=== PATIENT | male | born 1950 | race Caucasian/White ===

== ENCOUNTER 2021-04-26 13:08 | Emergency (ER) | payer OTHER ==
[~2021-04-26] VITALS: Ht 180.3 cm; Wt 106.6 kg
== END 2021-04-26 15:11 | disposition home or self-care (01) ==
LOC: ER 13:08
DX: S01.81XA Laceration without foreign body of other part of head, initial encounter (principal); D68.32 Hemorrhagic disorder due to extrinsic circulating anticoagulants; T45.515A Adverse effect of anticoagulants, initial encounter; I10 Essential (primary) hypertension; Z88.1 Allergy status to other antibiotic agents; Z79.01 Long term (current) use of anticoagulants; W22.8XXA Striking against or struck by other objects, initial encounter
CPT/HCPCS: 99283-25; A9270

== ENCOUNTER 2021-06-04 21:54 | Emergency (ER) | payer OTHER ==
[~2021-06-04] VITALS: Ht 180.3 cm; Wt 95.2 kg
== END 2021-06-04 23:45 | disposition home or self-care (01) ==
LOC: ER 21:54
DX: I83.899 Varicose veins of unspecified lower extremity with other complications (principal); I10 Essential (primary) hypertension; Z88.8 Allergy status to other drugs, medicaments and biological substances
CPT/HCPCS: 99282

== ENCOUNTER 2023-03-10 09:54 | Inpatient (IN) | payer OTHER ==
[~2023-03-10] VITALS: Ht 180.3 cm; Wt 102.1 kg
[2023-03-10] MEDS ORDERED: HYDCHL25 PO (10:12)
[2023-03-10] MEDS ORDERED: LISI5 PO (10:13)
[2023-03-10] MEDS ORDERED: ELIQUIS5 M2 PO (10:13)
[2023-03-10] MEDS ORDERED: ALEN70 PO (10:13)
[2023-03-10] MEDS ORDERED: ATEN25 PO ×2 (10:13)
[2023-03-10 10:14] LABS: BASOPHILS ABSOLUTE AUTO 0.05 K/mm3 (0.00-0.23); BASOPHILS PERCENT AUTO 0 % (0-2); EOSINOPHILS ABSOLUTE AUTO 0.07 K/mm3 (0.00-0.68); EOSINOPHILS PERCENT AUTO 0 % (0-6); Hematocrit 38.1 % (37.0-53.0); Hemoglobin 13.7 g/dL (13.5-17.5); IMMATURE GRAN ABSOLUTE AUTO 0.15 K/mm3 (0.00-0.10); IMMATURE GRAN PERCENT AUTO 1 % (0-1); LYMPHOCYTES ABSOLUTE AUTO 0.66 K/mm3 (0.84-5.20); LYMPHOCYTES PERCENT AUTO 3 % (21-46); MONOCYTES ABSOLUTE AUTO 2.57 K/mm3 (0.16-1.47); MONOCYTES PERCENT AUTO 11 % (4-13); Mean Corpuscular HGB 35.9 pg (26.0-34.0); Mean Corpuscular Volume 100 fL (80-100); Mean Platelet Volume 10.4 fL (9.1-12.4); NEUTROPHILS PERCENT AUTO 85 % (41-73); Platelet Count 143 K/mm3 (150-400); RDW Coefficient Variation 12.2 % (11.7-14.2); RDW Standard Deviation 45.1 fL (35.1-46.3); Red Blood Cell Count 3.82 M/mm3 (4.30-5.90)
[2023-03-10] MEDS ORDERED: HYDR1TAB94 PO (10:14)
[2023-03-10] MEDS ORDERED: LIDO700A20 TOP (10:14)
[2023-03-10 10:33] LABS: Albumin/Globulin Ratio 0.6 (0.8-1.8); Calcium, Blood 8.7 mg/dL (8.5-10.1); Creatinine, Blood 1.2 mg/dL (0.60-1.20); Potassium, Blood 3.9 mmol/L (3.5-5.5)
[2023-03-10 12:54] LABS: Influenza A, PCR NEGATIVE (NEGATIVE); Influenza B, PCR NEGATIVE (NEGATIVE); Resp Syncytial Virus, PCR NEGATIVE (NEGATIVE); SARS-Cov-2 (COVID-19) PCR, MMC NEGATIVE (NEGATIVE)
[2023-03-10 13:37] VITALS: BP 127/88
[2023-03-10 15:48] VITALS: BP 102/68
[2023-03-10] MEDS ORDERED: CALCIUM PO (15:52)
[2023-03-10] MEDS ORDERED: VITAMIN D 3 PO (15:52)
[2023-03-10] MEDS ORDERED: CENTRUM SILVER1 EAC2 PO (15:52)
--- NOTE | 2023-03-10 16:03 | NUR ---
DR. LOPEZ BY FOR PROVIDOR VISIT, UPDATED ON CURRENT VITALS. ORDERS TO GIVE HOME ATENOLOL NOW. ORDERS IN PLACE.
--- NOTE | 2023-03-10 18:24 | NUR ---
PT A&OX4, COOPERATIVE WITH CARE. PT WEARS GLASSES, CHOCHLEAR IMPLANT L EAR, HEARING AID R EAR. PT WEARS DENTURES, BUT THEY ARE AT HOME. PT ON 2L SATING ABOVE 94%, PT STATED PAIN L SIDE OF CHEST/RIBS WHEN TAKING DEEP BREATHS. HR AFIB 100'S-110'S. ABDOMEN DISTENDED, PT STATED THAT IS NORMAL FOR HIM. 2+ SWELLING BLE, PT STATED NORMAL FOR HIM. PT'S VISITED WITH HIM FOR AWHILE THIS EVENING. PT CURRENTLY RESTING IN CHAIR, CALL LIGHT WITHIN REACH.
[2023-03-10 18:33] VITALS: BP 103/83
[2023-03-10 20:01] VITALS: BP 96/74
[2023-03-10 23:56] VITALS: BP 95/67
[2023-03-10 23:58] LABS: Source, Urine Straight Cath
[2023-03-11 00:55] LABS: Blood, Urine 3+ (Neg); Glucose Qualitative, Urine Neg (Neg); Ketones, Urine 1+ (Neg); Leukocyte Esterase, Urine 1+ (Neg); Nitrite, Urine Neg (Neg); Protein, Urine 3+ (Neg); Specific Gravity, Urine 1.025 (1.003-1.022); Urobilinogen, Urine 1+ (Normal)
[2023-03-11 01:02] LABS: Bilirubin, Urine 1+ (Neg)
[2023-03-11 01:03] LABS: Appearance, Urine Hazy (Clear); Color, Urine Yellow (P-Yellow)
[2023-03-11 02:20] LABS: Albumin, Blood 2.7 g/dL (3.4-5.0); Albumin/Globulin Ratio 0.6 (0.8-1.8); Bilirubin, Total 1.3 mg/dL (0.1-1.0); Bun/Creatinine Ratio 24.8 (12.0-20.0); Calcium, Blood 8.6 mg/dL (8.5-10.1); Creatinine, Blood 1.21 mg/dL (0.60-1.20); Globulin, Blood 4.8 g/dL (2.2-4.0); Potassium, Blood 3.5 mmol/L (3.5-5.5); Total Protein, Blood 7.5 g/dL (6.4-8.2)
[2023-03-11 02:37] LABS: Hematocrit 36.9 % (37.0-53.0); Hemoglobin 12.9 g/dL (13.5-17.5); Mean Corpuscular HGB 35.4 pg (26.0-34.0); Mean Corpuscular Volume 101 fL (80-100); Mean Platelet Volume 10.7 fL (9.1-12.4); Platelet Count 129 K/mm3 (150-400); RDW Coefficient Variation 12.2 % (11.7-14.2); RDW Standard Deviation 45.9 fL (35.1-46.3); Red Blood Cell Count 3.64 M/mm3 (4.30-5.90); White Blood Cell Count 14.14 K/mm3 (4.00-11.30)
[2023-03-11 02:41] LABS: Source, Urine Straight Cath
[2023-03-11 04:59] VITALS: BP 102/68
[2023-03-11 05:53] LABS: Amorphous Mod (0-Heavy); Bacteria Few /hpf; Squamous Epithelial Cells Rare /hpf (Few)
--- NOTE | 2023-03-11 06:46 | NUR ---
SHIFT SUMMARY A/OX4, 1P ASSIST FOR TRANSFERS D/T WEAKNESS. TELE AFIB 70-90S, DENIES CARDIAC RELATED CP. SPO2 >92% ON RA. REPORTS L. SHOULDER/RIB PAIN THAT HAS BEEN ONGOING X 5 DAYS, MEDICATED PER EMAR. PT UP TO BATHROOM TO URINATE, POST VOID BLADDER SCAN OF <200. VSS, NO ACUTE CHANGES AT THIS TIME. BED IN LOWEST POSITION WITH CALL LIGHT IN REACH. WILL CONTINUE TO MONITOR AND REPORT TO ONCOMING RN.
[2023-03-11 09:01] VITALS: BP 121/74
--- NOTE | 2023-03-11 10:44 | NUR ---
Plans for comfort care, held am medications.
[2023-03-11 12:10] VITALS: BP 126/86
[2023-03-11 16:24] VITALS: BP 119/68
--- NOTE | 2023-03-11 17:45 | NUR ---
Shift Summary Patient alert, oriented x4; calm and cooperative with care. Patient is resting in bed, up sba in room. Reporting pain to left side, medicated per emar and heating pad provided. Patient denies sob nausea, dizziness and numb/tingling. Patient had cochlear implant. Tele afib 80-120's, bp stable. Spo2 >90% on ra, titrated down from 2l o2 via nc this am. Abd distender, patient reporting as normal for him. Patinet reporting constipation this am, medicated per emar, pt reports bm this afternoon. Pt reporting productive cough this afternoon, attempted to send sputum for culture but was not adequate. Other vss. Will continue to monitor.
--- NOTE | 2023-03-11 18:58 | NUR ---
Per donor line, pt is able to donate eyes and tissue, will here approx 1999. Notified [facility] to be on standby.
[2023-03-11 19:32] VITALS: BP 109/60
[2023-03-11 23:00] VITALS: BP 115/86
[2023-03-12 03:51] LABS: Hematocrit 35.1 % (37.0-53.0); Hemoglobin 12.5 g/dL (13.5-17.5); Mean Corpuscular HGB 35.7 pg (26.0-34.0); Mean Corpuscular HGB Conc 35.6 g/dL (31.5-36.5); Mean Corpuscular Volume 100 fL (80-100); Mean Platelet Volume 10.2 fL (9.1-12.4); Platelet Count 144 K/mm3 (150-400); RDW Coefficient Variation 12.1 % (11.7-14.2); RDW Standard Deviation 44.2 fL (35.1-46.3); White Blood Cell Count 12.11 K/mm3 (4.00-11.30)
[2023-03-12 04:09] LABS: Bun/Creatinine Ratio 35.9 (12.0-20.0); Calcium, Blood 8.9 mg/dL (8.5-10.1); Creatinine, Blood 0.98 mg/dL (0.60-1.20); Phosphorus, Blood 4.1 mg/dL (2.5-4.9); Potassium, Blood 3.8 mmol/L (3.5-5.5)
--- NOTE | 2023-03-12 04:23 | NUR ---
SHIFT SUMMARY: PT ALERT AND ORIENTED X4, ABLE TO FOLLOW COMMANDS AND MAKE NEEDS KNOWN. COOPERATIVE WITH CARE. STRENGTH EQUAL BILATERALLY. BP STABLE, HR REMAINS AFIB 70'S AT REST, >110 WITH ACTIVITY. SATS >95% ON 2L NC. RESPIRATIONS EVEN AND UNLABORED. PT IND TO AND FROM BATHROOM. APPROX 800ML OF URINIARY OUTPUT, NO BM. POSSIBLE DISCHARGE TODAY. BED IN LOW, CALL LIGHT IN REACH, WILL REPORT TO ONCOMING RN.
--- NOTE | 2023-03-12 05:23 | NUR ---
UPDATE: PT REFUSING 0400 VITALS.
[2023-03-12 07:23] VITALS: BP 137/109
--- NOTE | 2023-03-12 07:39 | NUR ---
AM NOTE PT UP IN CHAIR, HE IS ALERT AND ORIENTED X 4, HE REPORTED 5/10 PAIN IN BOTH RIGHT AND LEFT SIDES DUE TO FALL AT HOME ON FEBRUARY 20. PT OFFERED TYLENOL FIRST BUT DECLINED. VSS. CALL LIGHT IN REACH.
[2023-03-12 10:48] VITALS: BP 111/77
[2023-03-12] MEDS ORDERED: ATEN25 (11:55)
[2023-03-12] MEDS ORDERED: AZIT500 PO (11:59)
[2023-03-12] MEDS ORDERED: Tessalon200 MG PO (12:00)
[2023-03-12] MEDS ORDERED: GUAI600T33 PO (12:00)
[2023-03-12] MEDS ORDERED: MIRALAX17 GM PO (12:01)
[2023-03-12] MEDS ORDERED: VISBIOME 112.51 EACH PO (12:03)
[2023-03-12] MEDS ORDERED: FURO20 PO (12:04)
[2023-03-12] MEDS ORDERED: CEFU500T30 PO (12:04)
[2023-03-12] MEDS ORDERED: ATEN25 PO (12:16)
--- NOTE | 2023-03-12 13:36 | NUR ---
DISCHARGE NOTE PT WAS ALERT AND ORIENTED X 4, VSS. THIS NURSE REMOVED PERIPHERAL IV IN L HAND. DISCHARGE INSTRUCTIONS GIVEN TO PT AND PT INCLUDING BUT NOT LIMITED TO MEDICATION INSTRUCTIONS, DIET RESTRICTIONS, AND FOLLOW UP APPOINTMENTS. EDUCATION ALSO PROVIDED REGARDING NEW MEDICATIONS. PT LEFT PCU AT APPROX. 1255 VIA WHEELCHAIR ESCORTED BY MIGUEL ANGEL HOLDER. PT LEFT W/ ALL OF PERSONAL BELONGINGS.
== END 2023-03-12 12:53 | disposition home or self-care (01) | DRG 280 ==
LOC: ER 09:54 → PCU 12:26
PROVIDERS: Emergency Medicine; ADMIT Internal Medicine
DX: I48.20 Chronic atrial fibrillation, unspecified (principal); I21.A1 Myocardial infarction type 2; A41.9 Sepsis, unspecified organism; I50.21 Acute systolic (congestive) heart failure; J18.9 Pneumonia, unspecified organism; J96.91 Respiratory failure, unspecified with hypoxia; E87.1 Hypo-osmolality and hyponatremia; I42.0 Dilated cardiomyopathy; E86.1 Hypovolemia; D69.6 Thrombocytopenia, unspecified; N40.0 Benign prostatic hyperplasia without lower urinary tract symptoms; I73.9 Peripheral vascular disease, unspecified; G60.9 Hereditary and idiopathic neuropathy, unspecified; K76.0 Fatty (change of) liver, not elsewhere classified; D47.2 Monoclonal gammopathy; I95.9 Hypotension, unspecified; I11.0 Hypertensive heart disease with heart failure; M81.0 Age-related osteoporosis without current pathological fracture; Z20.822 Contact with and (suspected) exposure to COVID-19; Z79.01 Long term (current) use of anticoagulants; Z87.19 Personal history of other diseases of the digestive system; Z88.1 Allergy status to other antibiotic agents; Z85.828 Personal history of other malignant neoplasm of skin; Z98.890 Other specified postprocedural states; Z79.899 Other long term (current) drug therapy; Z79.811 Long term (current) use of aromatase inhibitors; Z87.891 Personal history of nicotine dependence
CPT/HCPCS: 0241U; 36415; 71045; 71250; 80048; 80053; 81015; 83605; 83735; 83880; 84100; 84145; 84484; 85025; 85027; 87040; 87086; 93005; 93010; 94760; 94762; 96365; 96375; 96376; 99285-25; A9270; C8929; J0456; J0696; J1940; J2405; J3010; J7050; Q9957

== ENCOUNTER 2024-08-28 07:38 | Day surgery (SDC) | payer OTHER ==
[2024-08-28] VITALS (13 sets, daily range): BP systolic 80–153; BP diastolic 59–99
[~2024-08-28] VITALS: Ht 182.9 cm; Wt 104.3 kg
[~2024-08-28 07:38] MED LIST: ACET500; ALEN70 PO; ATEN25; ATEN25 PO; AZIT500 PO; CALCIUM PO; CEFU500T30 PO; CENTRUM SILVER1 EAC2 PO; ELIQUIS5 M2 PO; FURO20 PO; GUAI600T33 PO; HYDCHL25 PO; HYDR1TAB94 PO; LIDO700A20 TOP; LISI5 PO; MIRALAX17 GM PO; Tessalon200 MG PO; VISBIOME 112.51 EACH PO; VITAMIN D 3 PO
[2024-08-28] MEDS ORDERED: Heparin Sodium 1000 Units/ML 10ML MDV ONE ×2 (10:18→11:54)
[2024-08-28] MEDS ORDERED: Nitroglycerin 2 MG/20 ML BTL ONE (10:18)
[2024-08-28] MEDS ORDERED: NS 1,000 ML IV ONE ×2 (10:18→10:40)
[2024-08-28] MEDS ORDERED: NS 250 ML IV ONE ×2 (10:18)
[2024-08-28] MEDS ORDERED: Midazolam HCl 1MG / ML 2ML Vial ONE ×3 (10:40→11:21)
[2024-08-28] MEDS ORDERED: FentaNYL Citrate 50 MCG/ML 2 ML Injection ONE ×2 (10:40→11:21)
[2024-08-28] MEDS ORDERED: Protamine Sulfate 50 MG Amp ONE (12:12)
--- NOTE | 2024-08-28 13:25 | NUR ---
PATIENT TO RECOVERY ROOM S/P PERIPHERAL ANGIOGRAM AT 1249 WITH LEFT BRACHIAL ACCESS. PT AWAKE AND ALERT SITTING UP IN A CHAIR. PATIENT DENIES COMPLAINTS. PT WITH SOME HYPOTENSION, MAPS >65, PT ASYMPTOMATIC. LEFT BRACHIAL SITE WNL. DRSG C/D/I. SITE SOFT WITHOUT HEMATOMA OR BLEEDING. DR CRESPO TO SEE PT AFTER PROCEDURE TO GIVE UPDATE.
--- NOTE | 2024-08-28 15:06 | NUR ---
STANDING BP TAKEN PRIOR TO DC, 103 SYSTOLIC ON SHANE. PT STATES HIS BP RUNS 20 POINTS LOWER ON RIGHT ARM. LEFT WRIST SYSTOLIC IN 150'S. PT UP TO BATHROOM W/O COMPLAINTS, DENIES PAIN OR DIZZINESS. VOIDED AROUND 500CC URINE. TOLERATED JUICE AND CRACKERS. VERBAL AND WRITTEN DISCHARGE INFO GIVEN TO PT AND PT'S WITH CLEAR UNDERSTANDING. PT DC'D HOME IN STABLE CONDITION AT 1500. ESCORTED OUT VIA WHEELCHAIR, PT'S DRIVING PT HOME.
== END 2024-08-28 15:34 | disposition home or self-care (01) ==
LOC: MHTC 07:38
DX: I73.9 Peripheral vascular disease, unspecified (principal); I10 Essential (primary) hypertension; E78.5 Hyperlipidemia, unspecified; I48.91 Unspecified atrial fibrillation; J43.9 Emphysema, unspecified; Z87.891 Personal history of nicotine dependence; Z88.1 Allergy status to other antibiotic agents; Z79.01 Long term (current) use of anticoagulants; Z79.899 Other long term (current) drug therapy
CPT/HCPCS: 36200; 75625; 75716; 76937; 99152; 99153; C1769; C1887; C1894; J1644; J2250; J2720; J3010; J7030; J7050; Q9967

== ENCOUNTER 2024-09-09 08:17 | Inpatient (IN) | payer OTHER ==
[~2024-09-09] VITALS: Ht 172.7 cm; Wt 105.4 kg
[~2024-09-09 08:17] MED LIST changes: +LISI20 PO; -LISI5 PO
[2024-09-09] MEDS ORDERED: OxyCODONE 7.5 mg/Acetam 325 mg TABLET PO ONE (09:20)
[2024-09-09] MEDS ORDERED: NS 1,000 ML IV SCH ×2 (09:50→14:00)
[2024-09-09 09:55] LABS: BASOPHILS ABSOLUTE AUTO 0.03 K/mm3 (0.00-0.23); BASOPHILS PERCENT AUTO 1 % (0-2); EOSINOPHILS ABSOLUTE AUTO 0.01 K/mm3 (0.00-0.68); EOSINOPHILS PERCENT AUTO 0 % (0-6); Hematocrit 42.7 % (37.0-53.0); Hemoglobin 15.1 g/dL (13.5-17.5); IMMATURE GRAN ABSOLUTE AUTO 0.03 K/mm3 (0.00-0.10); IMMATURE GRAN PERCENT AUTO 1 % (0-1); LYMPHOCYTES ABSOLUTE AUTO 0.71 K/mm3 (0.84-5.20); LYMPHOCYTES PERCENT AUTO 12 % (21-46); MONOCYTES ABSOLUTE AUTO 1.52 K/mm3 (0.16-1.47); MONOCYTES PERCENT AUTO 26 % (4-13); Mean Corpuscular HGB 35.6 pg (26.0-34.0); Mean Corpuscular HGB Conc 35.4 g/dL (31.5-36.5); Mean Corpuscular Volume 101 fL (80-100); NEUTROPHILS ABSOLUTE AUTO 3.46 K/mm3 (1.96-9.15); NEUTROPHILS PERCENT AUTO 60 % (41-73); Platelet Count 118 K/mm3 (150-400); RDW Coefficient Variation 12.1 % (11.7-14.2); RDW Standard Deviation 45.4 fL (35.1-46.3); Red Blood Cell Count 4.24 M/mm3 (4.30-5.90); White Blood Cell Count 5.76 K/mm3 (4.00-11.30)
[2024-09-09 10:12] LABS: Albumin, Blood 3.5 g/dL (3.4-5.0); Albumin/Globulin Ratio 0.7 (0.8-1.8); Bun/Creatinine Ratio 26.1 (12.0-20.0); Calcium, Blood 9.7 mg/dL (8.5-10.1); Creatinine, Blood 1.38 mg/dL (0.60-1.20); Globulin, Blood 4.9 g/dL (2.2-4.0); Potassium, Blood 4.7 mmol/L (3.5-5.5); Total Protein, Blood 8.4 g/dL (6.4-8.2)
[2024-09-09] MEDS ORDERED: Ondansetron HCl 2 MG / ML 2ML Vial IV ONE (12:25)
[2024-09-09] MEDS ORDERED: HYDROmorphone HCl/Pf 1MG SYR IV ONE (12:25)
[2024-09-09] MEDS ORDERED: PNEUMOC 20-VAL CONJ-DIP CRM/PF 0.5 ML SYRINGE IM PRN (13:35)
[2024-09-09] MEDS ORDERED: FLU VACC TS2024-25(6MOS UP)/PF 45 MCG/0.5 ML SYRINGE IM PRN (13:35)
[2024-09-09] MEDS ORDERED: OxyCODONE HCL 5 MG TAB PO PRN (13:35)
[2024-09-09] MEDS ORDERED: Ondansetron 4 MG TAB PO PRN (13:40)
[2024-09-09] MEDS ORDERED: Timolol 0.5% Opth Soln 5 ML BOTHEYES SCH (14:07)
[2024-09-09] MEDS ORDERED: Thrombin 5000/Vial TOP SCH (15:10)
[2024-09-09] MEDS ORDERED: NS 500 ML IV ONE ×2 (15:17→17:13)
[2024-09-09] MEDS ORDERED: BRIMONIDINE BOTHEYES SCH (16:00)
[2024-09-09] MEDS ORDERED: BRINZOLAMIDE BOTHEYES SCH (16:00)
[2024-09-09 16:25] VITALS: BP 102/65
[2024-09-09] MEDS ORDERED: HYDROmorphone HCl/Pf 1MG SYR IV PRN (16:30)
[2024-09-09] MEDS ORDERED: Betimol5 ML RIGHTEYE (16:37)
[2024-09-09 16:53] VITALS: BP 96/60
[2024-09-09] MEDS ORDERED: Midazolam HCl 1MG / ML 2ML Vial ONE ×2 (16:57→18:08)
[2024-09-09] MEDS ORDERED: NS 1,000 ML IV ONE (16:57)
[2024-09-09] MEDS ORDERED: FentaNYL Citrate 50 MCG/ML 2 ML Injection ONE ×2 (16:57→18:06)
[2024-09-09] MEDS ORDERED: Heparin Sodium 1000 Units/ML 10ML MDV ONE (17:13)
[2024-09-09] MEDS ORDERED: Phenylephrine HCl 100 MCG/ML-NS 10MLSYR (1MG/10ML) ONE (17:33)
[2024-09-09] MEDS ORDERED: NS 250 ML IV ONE (17:38)
--- NOTE | 2024-09-09 17:57 | NUR ---
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 NO FOCAL DEFICIETS NOTED. WAS ABLE TO STAND PIVOT FROM GURNEY TO PCU BED. DENIES CHEST PAIN PRESSURE OR SOB AT REST. ON RA SPO2 >92%. EVEN AND UNLABORED RESPIRATIONS, RR <20. LEFT LOWER EXTREMITY BLOOD PRESSURE >65 MAP. 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 IS DONTA IN THE ROASTER OPERATOR FOR DR. Jon TO PERFORM MANUAL ULTRASOUND COMPRESSION OF LEFT AC FOSSA PSEUDOANEURYSM. TROP TRENDING DOWN. BILATERAL VENOUS STASIS SOCKING, NOTED BILATERAL CLAUDICATION. KARINA AT BEDSIDE. NO PAIN MEDICATION GIVEN BY THIS RN PAIN IS UNDER CONTROL FROM ED. HAS BEEN NPO, RIGHT KNEE BRACE IN NIGHTSTAND. LEFT ARM IN SLING ON ADMISSION TO HELP STABILIZE AND PREVENT PAINFUL TOUCH FROM STAFF AND SELF. LEFT AC IS SIGNIFICANTLY BRUIS CIRCUMFRENCIAL ON THE ARM. ISBELINDA SANCHEZ WEARS HEARING AID RIGHT EAR. NO ADVANTAGEOUS LUNG SOUNDS ASCULTATED BY THIS RN. ALL EXTREME PPP. BM TODAY AND URINATED IN ED PRIOR TO COMING UP. AWAITING PATIENT FOR FURTHER EVALUATION.
[2024-09-09] MEDS ORDERED: Thrombin 5000/Vial TOP ONE (19:40)
[2024-09-09 20:30] VITALS: BP 124/79
[2024-09-09 21:00] VITALS: BP 104/56
[2024-09-09] MEDS ORDERED: Apixaban 5 MG Tab PO SCH (21:00)
[2024-09-09 21:30] VITALS: BP 112/68
[2024-09-10] VITALS (16 sets, daily range): BP systolic 79–136; BP diastolic 44–101
[2024-09-10] MEDS ORDERED: NS 500 ML IV ONE (02:25)
[2024-09-10 03:43] LABS: BASOPHILS ABSOLUTE AUTO 0.03 K/mm3 (0.00-0.23); BASOPHILS PERCENT AUTO 1 % (0-2); EOSINOPHILS ABSOLUTE AUTO 0.03 K/mm3 (0.00-0.68); EOSINOPHILS PERCENT AUTO 1 % (0-6); Hematocrit 38.4 % (37.0-53.0); Hemoglobin 13.2 g/dL (13.5-17.5); IMMATURE GRAN ABSOLUTE AUTO 0.02 K/mm3 (0.00-0.10); IMMATURE GRAN PERCENT AUTO 0 % (0-1); LYMPHOCYTES ABSOLUTE AUTO 0.62 K/mm3 (0.84-5.20); LYMPHOCYTES PERCENT AUTO 12 % (21-46); MONOCYTES ABSOLUTE AUTO 1.38 K/mm3 (0.16-1.47); MONOCYTES PERCENT AUTO 26 % (4-13); Mean Corpuscular HGB 35.4 pg (26.0-34.0); Mean Corpuscular HGB Conc 34.4 g/dL (31.5-36.5); Mean Corpuscular Volume 103 fL (80-100); NEUTROPHILS ABSOLUTE AUTO 3.27 K/mm3 (1.96-9.15); NEUTROPHILS PERCENT AUTO 61 % (41-73); Platelet Count 91 K/mm3 (150-400); RDW Coefficient Variation 12.2 % (11.7-14.2); RDW Standard Deviation 46.5 fL (35.1-46.3); Red Blood Cell Count 3.73 M/mm3 (4.30-5.90); White Blood Cell Count 5.35 K/mm3 (4.00-11.30)
[2024-09-10 03:59] LABS: Albumin, Blood 2.7 g/dL (3.4-5.0); Albumin/Globulin Ratio 0.7 (0.8-1.8); Bilirubin, Total 0.8 mg/dL (0.1-1.0); Bun/Creatinine Ratio 31.6 (12.0-20.0); Calcium, Blood 8.3 mg/dL (8.5-10.1); Creatinine, Blood 1.14 mg/dL (0.60-1.20); Globulin, Blood 4.1 g/dL (2.2-4.0); Potassium, Blood 4.3 mmol/L (3.5-5.5); Total Protein, Blood 6.8 g/dL (6.4-8.2)
[2024-09-10] MEDS ORDERED: NS 1,000 ML IV ONE (04:19)
[2024-09-10] MEDS ORDERED: NS 1,000 ML IV SCH (04:30)
--- NOTE | 2024-09-10 06:48 | NUR ---
SHIFT SUMMARY. PT RETURNED FROM SURGERY AROUND 202909/09/24. PT SEEMS TO BE IN [employer] POST PROCEDURE, ALTHOUGH SEEMS TO HAVE 7/10 PAIN THAT WAS CONTROLLED WITH ONE DOSE OF DILAUDID. PT IS ALERT AND ORIENTED X 4 AND ABLE TO MOVE EXTREMETIES, LEFT EXTREMETY IS MORE PAINFUL THAN OTHERS. FLAT TIME WAS FOLLOWED FOR 4 HOURS POST PROCEDURE. PT WAS ABLE TO SIT 30 DEGREES AT 0030 WITHOUT COMPLICATION. PTs BLOOD PRESSURE HAS BEEN SOFT FOR A LONG PERIOD OF SHIFT. PHYSICIAN VERBALIZED ORDER FOR 500ML BOLUS X 2 TO TRY AND BRING PTS BLOOD PRESSURE UP. TREATMENT HAS BEEN EFFECTIVE, ALTHOUGH PTs PRESSURE HAS BEEN SOFT WHENEVER HE FALLS ASLEEP. PT IS ASYMPTOMATIC AT ANY POINT HE IS QUESTIONED ABOUT THIS LOW BLOOD PRESSURE. PT IS IN CHRONIC AFIB. PULSES IN LOWER EXTREMETIES CAN BE FOUND WITH DOPPLER. UPPER EXTREMETIES ARE PALPABLE. PTs TR BAND WAS LOWERED AND REMOVED AT 0230, PT HAS HAD SOME OOZING OF BLOOD FROM SKIN TEAR ON UPPER L ARM BUT OP SITES HAVE REMAINED WNL. PTS LUNG SOUNDS ARE CLEAR AND DIM. HE HAS REQUIRED OXYGEN AT 2L NC BUT HAS ALSO BEEN DIFFICULT TO GET A GOOD PULSE OXYMETRY ON. OXYGEN DEMANDS COULD BE LOWER. PT HAS VOIDED, BUT HAS NOT HAD BOWEL MOVEMENT. PT HAS TOLERATED SHIFT. WILL CONTINUE TO MONITOR UNTIL REPORT PASSED TO DAY SHIFT TEAM.
[2024-09-10] MEDS ORDERED: Atenolol 25 MG Tab PO SCH ×3 (12:56→21:00)
--- NOTE | 2024-09-10 20:00 | NUR ---
ASSUMPTION NOTE: THIS RN TO ASSUME CARE. PATIENT IS ALERT AND ORIENTED X4 AND SITTNG UP IN BED. VITAL SIGNS TAKEN AND PATIENT STABLE. PATIENT DENIED CHEST PAIN/PRESSURE OR FEELING SOB. REPORTED 5/10 PAIN AND WAS MEDICATED PER EMAR. PATIENT HAS CALL LIGHT WITHIN REACH, BED IN LOWEST POSITION AND REPORTING NOT NEEDING ANYTHING AT THIS TIME.
[2024-09-11] VITALS (11 sets, daily range): BP systolic 85–137; BP diastolic 58–95
--- NOTE | 2024-09-11 00:56 | NUR ---
UPDATE NURSING STAFF BROUGHT TO THIS RN'S ATTENTION OF PT YELLING AND CURSING AT STAFF WITH PT STATING, "DONT FUCKING TOUCH MY CORD, I HOPE YOU FUCKING !". THIS RN TO ROOM TO TALK WITH PT ASKING WHAT WAS GOING ON AND WHY THE PT WAS SO AGITATED. PT STATES, "MY FUCKING NEIGHBOR IS TOO LOUD, AND YOU GUYS NEEDS TO JUST SHUT HIM UP! I KNOW HES NOT SICK AND I CAN HEAR YOU GUYS OUT THERE DRINKING". THIS RN APOLOGIZED FOR THE NOISE NEXT DOOR AND TRIED TO EXPLAIN THAT THE NEXT DOOR PT IS VERY SICK AND CONFUSED SO WE ARE NOT ABLE TO CLOSE HIS DOOR DUE TO THE HIGH FALL RISK. THIS RN ALSO ASKED IF PT WOULD LIKE HIS DOOR CLOSED AND SOME EAR PLUGS TO HELP WITH THE NOISE. IT WAS ALSO EXPLAINED THAT STAFF ARE NOT DRINKING ANY ALCOHOL. PT REFUSED THESE INTERVENTIONS AND THEN HE STARTED YELLING/CURSING AT THIS RN STATING, "YOU DONT FUCKING KNOW WHATS GOING ON EITHER, GET THE FUCK OUT OF MY ROOM!" THIS RN EXPLAINED TO THE PT THAT HIS BEHAVIOR IS EXTREMELY INAPPROPRIATE AND WILL NOT BE TOLERATED. ATTEMPTED TO ASSESS PT'S MENATION, BUT PT TOLD THIS RN TO "FUCK OFF". THIS RN MADE SURE CALL LIGHT WAS WITHIN REACH, BED IN LOWEST POSITION BEFORE LEAVING ROOM.
[2024-09-11 05:50] LABS: BASOPHILS ABSOLUTE AUTO 0.02 K/mm3 (0.00-0.23); BASOPHILS PERCENT AUTO 0 % (0-2); EOSINOPHILS ABSOLUTE AUTO 0.01 K/mm3 (0.00-0.68); EOSINOPHILS PERCENT AUTO 0 % (0-6); Hematocrit 36.6 % (37.0-53.0); Hemoglobin 12.8 g/dL (13.5-17.5); Mean Corpuscular HGB 35.6 pg (26.0-34.0); Mean Corpuscular Volume 102 fL (80-100); Mean Platelet Volume 10.8 fL (9.1-12.4); Platelet Count 86 K/mm3 (150-400); RDW Coefficient Variation 12.3 % (11.7-14.2); RDW Standard Deviation 46.5 fL (35.1-46.3); White Blood Cell Count 5.73 K/mm3 (4.00-11.30)
[2024-09-11 05:57] LABS: IMMATURE GRAN ABSOLUTE AUTO 0.02 K/mm3 (0.00-0.10); IMMATURE GRAN PERCENT AUTO 0 % (0-1); LYMPHOCYTES ABSOLUTE AUTO 0.96 K/mm3 (0.84-5.20); LYMPHOCYTES PERCENT AUTO 17 % (21-46); MONOCYTES ABSOLUTE AUTO 1.47 K/mm3 (0.16-1.47); MONOCYTES PERCENT AUTO 26 % (4-13); NEUTROPHILS ABSOLUTE AUTO 3.25 K/mm3 (1.96-9.15); NEUTROPHILS PERCENT AUTO 57 % (41-73)
--- NOTE | 2024-09-11 06:05 | NUR ---
SHIFT SUMMARY: PATIENT IS ALERT AND ORIENTED X4 AND COOPERATIVE WITH HIS CARE. IS ABLE TO MAKE NEEDS KNOWN AND IS VERY PARTICULAR AND WOULD LIKE TO DO MOST TASKS FOR HIMSELF. SATTING >92% ON ROOM AIR, EVEN AND UNLABORED RESPIRATIONS. PATIENT ON TELE SHOWING AFIB WITH RATE IN 80-90'S. WAS MEDICATED ONCE THROUG SHIFT FOR SOME PAIN. HAD GOOD OUTPUT USING HE URINAL AND DID NOT GET MUCH REST. PATIENT DID GET IN SOME ARGUMENTS WITH HE STAFF AND USING FOWL LANGUAGE WITH THE STAFF AND CHARGE NURSE, SEE PREVIOUS NOTES FOR MORE INFORMATION FROM THOSE SAID STAFF MEMBERS. PATIENT HAS CALL LIGHT WITHIN REACH, BED IN LOWEST POSITION AND NOT NEEDING ANYTHING AT THIS TIME.
[2024-09-11 06:23] LABS: Albumin, Blood 2.8 g/dL (3.4-5.0); Albumin/Globulin Ratio 0.7 (0.8-1.8); Bilirubin, Total 1.1 mg/dL (0.1-1.0); Bun/Creatinine Ratio 21.7 (12.0-20.0); Calcium, Blood 8.4 mg/dL (8.5-10.1); Creatinine, Blood 0.88 mg/dL (0.60-1.20); Globulin, Blood 4.3 g/dL (2.2-4.0); Potassium, Blood 4.1 mmol/L (3.5-5.5); Total Protein, Blood 7.1 g/dL (6.4-8.2)
[2024-09-11] MEDS ORDERED: Apixaban 5 MG Tab PO SCH (09:00)
[2024-09-11] MEDS ORDERED: NS 250 ML IV ONE (14:18)
[2024-09-11] MEDS ORDERED: Heparin Sodium 1000 Units/ML 10ML MDV ONE (14:18)
[2024-09-11] MEDS ORDERED: NS 1,000 ML IV ONE ×2 (14:18→14:22)
[2024-09-11] MEDS ORDERED: Midazolam HCl 1MG / ML 2ML Vial ONE (14:21)
[2024-09-11] MEDS ORDERED: FentaNYL Citrate 50 MCG/ML 2 ML Injection ONE (14:21)
--- NOTE | 2024-09-11 19:23 | NUR ---
DISCHARGE SUMMARY: STENT CARD TO BE MAILED [facility] PLACED CHART UNDERNEATH MATRESS. PATIENT IS ALERT AND OIRENTED X 4 NO ACUTE SIGNS OF SDISTRES. DENIES CHEST PAIN PRESSURE OR SOB. PATIENT HAS BEEN COOPERATIVE FOR THIS RN. R GROIN SITE LOOKS THE SAME WHEN HE CAME BACK FROM [facility]. VSS. TOLERATED LAYING FLAT FOR 2.5 HOURS, THAN 15' FOR 30 AND 35 FOR 10'. PATIENT ASSESSED EACH TIME WITH EACH DEGREE. DENIES PAIN,PRESSURE TIGHTNESS NUMBNESS DISTAL PPP. SPO2 >94%. NO ACUTE CONCERNS FROM PATIENT OR THIS RN. ALL DISHCARGE INSTRUCTIONS UNDERSTOOD BY PATIENT AND . NO QUESTIONS AT TIME OF DISCHARGE. IV'S REMOVED AND WHEELED OUT BY THIS RN TO VEHICLE.
== END 2024-09-11 20:00 | disposition home or self-care (01) | DRG 252 ==
LOC: ER 08:17 → PCU 13:33
PROVIDERS: Family Medicine; Student in an Organized Health Care Education/Training Program; ADMIT Internal Medicine
PROC: 037C3ZZ Dilation of Left Radial Artery, Percutaneous Approach (ICD-10-PCS; principal; 2024-09-09)
PROC: 047J3DZ Dilation of Left External Iliac Artery with Intraluminal Device, Percutaneous Approach (ICD-10-PCS; 2024-09-09)
PROC: 3E053GC Introduction of Other Therapeutic Substance into Peripheral Artery, Percutaneous Approach (ICD-10-PCS; 2024-09-09)
PROC: B4101ZZ Fluoroscopy of Abdominal Aorta using Low Osmolar Contrast (ICD-10-PCS; 2024-09-09)
PROC: B31J1ZZ Fluoroscopy of Left Upper Extremity Arteries using Low Osmolar Contrast (ICD-10-PCS; 2024-09-09)
PROC: B41C1ZZ Fluoroscopy of Pelvic Arteries using Low Osmolar Contrast (ICD-10-PCS; 2024-09-09)
PROC: B41F1ZZ Fluoroscopy of Right Lower Extremity Arteries using Low Osmolar Contrast (ICD-10-PCS; 2024-09-11)
DX: I72.1 Aneurysm of artery of upper extremity (principal); I21.A1 Myocardial infarction type 2; E87.1 Hypo-osmolality and hyponatremia; I42.0 Dilated cardiomyopathy; I48.20 Chronic atrial fibrillation, unspecified; N17.9 Acute kidney failure, unspecified; I50.22 Chronic systolic (congestive) heart failure; I70.203 Unspecified atherosclerosis of native arteries of extremities, bilateral legs; I35.0 Nonrheumatic aortic (valve) stenosis; I11.0 Hypertensive heart disease with heart failure; E86.1 Hypovolemia; I95.9 Hypotension, unspecified; D47.2 Monoclonal gammopathy; N40.0 Benign prostatic hyperplasia without lower urinary tract symptoms; M81.0 Age-related osteoporosis without current pathological fracture; Z96.21 Cochlear implant status; Z96.611 Presence of right artificial shoulder joint; Z88.1 Allergy status to other antibiotic agents; Z79.01 Long term (current) use of anticoagulants; Z85.828 Personal history of other malignant neoplasm of skin; Z87.891 Personal history of nicotine dependence
CPT/HCPCS: 36415; 71046; 76937; 76998; 80053; 84484; 85025; 93005; 93010; 93931; 93971; 96361; 96374; 96375; 99152; 99153; 99285-25; A9270; C1725; C1769; C1876; C1887; C1894; J1171; J1644; J2250; J2371; J2405; J3010; J7030; J7040; J7050; Q9967

== ENCOUNTER 2025-02-19 12:53 | Day surgery (SDC) | payer OTHER ==
[~2025-02-19] VITALS: Ht 182.9 cm; Wt 98.1 kg
[~2025-02-19 12:53] MED LIST changes: +Balanced Salt Epinephrine Irrigation Solution 500 mL IR SCH; +Betimol5 ML RIGHTEYE; +Moxifloxacin HCL 0.5 MG/0.1 ML 0.4MLSYR RIGHTEYE SCH; +Ondansetron 4 MG SoluTab MM PRN; +PHENYLEPHRINE\\TROPICAMIDE\\TETRACAINE OPHTHALMIC DILATING SOLN RIGHTEYE PRN; +Povidone-Iodine 450 DROP/30 ML Solution ONE; +Povidone-Iodine 450 DROP/30 ML Solution RIGHTEYE SCH; +Tetracaine HCl/Pf 0.5% Opth Soln 4 ml ONE
--- NOTE | 2025-02-19 13:25 | NUR ---
02/19/25 1325 Carmelina Larios 1220: INITIAL ANXIETY 1222: 10 MG PO VALIUM GIVEN PER ORDERS, PULSE OX ON FINGER, CALL LIGHT IN REACH
[2025-02-19] MEDS ORDERED: RHOPRESSA2.5 ML (13:29)
[2025-02-19] MEDS ORDERED: MULTIVITAMIN (13:29)
[2025-02-19] MEDS ORDERED: Crestor40 MG PO (13:30)
[2025-02-19] MEDS ORDERED: Aspir 8181 MG PO (13:31)
[2025-02-19] MEDS ORDERED: LATANOPROST2.5 M3 (13:32)
[2025-02-19] MEDS ORDERED: CILO100 (13:32)
--- NOTE | 2025-02-19 14:02 | NUR ---
02/19/25 1402 Ni Blue 1357 BP:110/81 HR:78 O2%:96 RESP:16
[2025-02-19 14:19] VITALS: BP 104/68
== END 2025-02-19 14:30 | disposition home or self-care (01) ==
LOC: ORSCSDS 12:53
PROVIDERS: Student in an Organized Health Care Education/Training Program
PROC: 08RJ3JZ Replacement of Right Lens with Synthetic Substitute, Percutaneous Approach (ICD-10-PCS; principal; 2025-02-19 14:30)
DX: H25.813 Combined forms of age-related cataract, bilateral (principal); H21.81 Floppy iris syndrome; H35.039 Hypertensive retinopathy, unspecified eye; I10 Essential (primary) hypertension; I48.91 Unspecified atrial fibrillation; Z79.01 Long term (current) use of anticoagulants; Z79.899 Other long term (current) drug therapy; Z87.891 Personal history of nicotine dependence
CPT/HCPCS: A9270; V2632

== ENCOUNTER 2025-04-23 07:20 | Day surgery (SDC) | payer OTHER ==
[2025-04-23] VITALS (9 sets, daily range): BP systolic 115–163; BP diastolic 56–104
[~2025-04-23] VITALS: Ht 182.9 cm; Wt 95.3 kg
[~2025-04-23 07:20] MED LIST changes: -ACET500; +ACET500 PO; +Aspir 8181 MG PO; -Balanced Salt Epinephrine Irrigation Solution 500 mL IR SCH; +CILO100 PO; +Crestor40 MG PO; +LATANOPROST2.5 M3 BOTHEYES; +MULTIVITAMIN; -Moxifloxacin HCL 0.5 MG/0.1 ML 0.4MLSYR RIGHTEYE SCH; -Ondansetron 4 MG SoluTab MM PRN; -PHENYLEPHRINE\\TROPICAMIDE\\TETRACAINE OPHTHALMIC DILATING SOLN RIGHTEYE PRN; -Povidone-Iodine 450 DROP/30 ML Solution ONE; -Povidone-Iodine 450 DROP/30 ML Solution RIGHTEYE SCH; +RHOPRESSA2.5 ML; -Tetracaine HCl/Pf 0.5% Opth Soln 4 ml ONE
[2025-04-23] MEDS ORDERED: Verapamil HCL 2.5 MG/ML 2ML Injection ONE (07:23)
[2025-04-23] MEDS ORDERED: NS 1,000 ML IV ONE ×3 (07:24→07:43)
[2025-04-23] MEDS ORDERED: Heparin Sodium 1000 Units/ML 10ML MDV ONE ×3 (07:24→07:43)
[2025-04-23] MEDS ORDERED: NS 250 ML IV ONE (07:24)
[2025-04-23] MEDS ORDERED: Nitroglycerin 2 MG/20 ML BTL ONE (07:25)
[2025-04-23] MEDS ORDERED: FentaNYL Citrate 50 MCG/ML 2 ML Injection ONE ×2 (08:48→08:53)
[2025-04-23] MEDS ORDERED: Midazolam HCl 1MG / ML 2ML Vial ONE ×2 (08:48→09:47)
--- NOTE | 2025-04-23 10:25 | NUR ---
ASSSUMED CARE OF PT. PT ALERT AND ORIENTED, DENIES CP POST PROCEDURE. MONITOR AFIB 45-50'S, B/P 149/75, SPO2 97 % RA. R RADIAL SITE NO SWELLING/HEMATOMA, TR BAND IN PLACE; RUE: POSITIVE PLEUTH POST TR BAND PLACEMENT. R AC SITE NO SWELLING/HEMATOMA, TEGADERM DRSG INTACT.
--- NOTE | 2025-04-23 11:52 | NUR ---
ALL AIR REMOVED FROM RIGHT RADIAL TR BAND. SITE C/D/I SOFT/NONTENDER, NO EVIDENCE OF BLEEDING. VSS ON RA. PATIENT SITTING UPRIGHT IN RECLINER, DENYING ANY PAIN.
--- NOTE | 2025-04-23 12:05 | NUR ---
TR BAND FULLY DELFTED SITE WITHOUT S/S OF SWELLING/HEMATOMA.
--- NOTE | 2025-04-23 12:25 | NUR ---
R RADIAL SITE REMAINS UNCHANGED POST TR BAND DEFLATION.
--- NOTE | 2025-04-23 12:50 | NUR ---
PT DRESSED SELF WITHOUT ISSUE, SITES UNCHANGED. TR BAND REMOVED, CLOTH DOT AND WRIST IMMOBILIZER PLACED; IV REMOVED-CANNULA INTACT.
--- NOTE | 2025-04-23 12:58 | NUR ---
PT AND RECEIVED DISCHARGE INSTRUCTIONS, MED LIST AND AFTER CARE INSTRUCTIONS; VERBALIZED GOOD UNDERSTANDING. PT LEFT FACILITY VIA W/C, CONDITION STABLE.
== END 2025-04-23 13:39 | disposition home or self-care (01) ==
LOC: MHTC 07:20
DX: I35.0 Nonrheumatic aortic (valve) stenosis (principal); I34.81 Nonrheumatic mitral (valve) annulus calcification; I10 Essential (primary) hypertension; I48.91 Unspecified atrial fibrillation; I73.9 Peripheral vascular disease, unspecified; E78.5 Hyperlipidemia, unspecified; Z79.01 Long term (current) use of anticoagulants; Z79.899 Other long term (current) drug therapy; Z88.1 Allergy status to other antibiotic agents; Z91.013 Allergy to seafood
CPT/HCPCS: 76937; 93456; 99152; 99153; A9270; C1769; C1887; C1894; J1644; J2250; J3010; J7030; J7050; Q9967